=== PATIENT | male | born 1990 | race Caucasian/White ===

== ENCOUNTER 2018-04-27 15:45 | Emergency (ER) | payer SELFPAY ==
--- NOTE | 2018-04-27 16:01 | ER Report ---
History and Physical Time Seen By MD: 16:01 Hx. of Stated Complaint: pt having left sided rib pain. HPI/ROS CHIEF COMPLAINT: Left rib pain HISTORY OF PRESENT ILLNESS: 27-year-old male patient presents to emergency room with complaint of left rib pain. Patient states that the pain started this morning. He states that he believes that he may have strained something at work. 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 He states that typically the weight of what he is moving is 10-20 pounds patient states that his pain is worse when he stands up, when he moves. He states only sitting that the pain is a 4 out of 10. He denies having any fevers or chills. He states that he did not have any injury to the wrist. He denies having any rash or blistering of the skin. Patient states he does have pain with any type of movement of the skin. REVIEW OF SYSTEMS: Respiratory: No cough, no dyspnea. Cardiovascular: No chest pain, no palpitations. Gastrointestinal: No vomiting, no abdominal pain. Musculoskeletal: As noted above Allergies: Coded Allergies: No Known Drug Allergies (Unverified , 04/27/18) Home Meds Active Scripts Hydrocodone Bit/Acetaminophen (HYDROCODON-ACETAMINOPHEN 5-325) 1 Each Tablet, 1 EACH PO Q4-6H PRN for PAIN, #8 TAB Prov:FITZ GIBSON ATOMIC PHYSICS PROFESSOR 04/27/18 Valacyclovir Hcl (VALTREX) 1,000 Mg Tablet, 1000 MG PO TID, #19 TAB Prov:FITZ GIBSON ATOMIC PHYSICS PROFESSOR 04/27/18 Past Medical/Surgical History Patient has a past medical history of asthma. Patient denies any surgical history. Reviewed Nurses Notes: Yes Constitutional Vital Sign - Last 24 Hours 04/27/18 04/27/18 04/27/18 04/27/18 15:49 16:16 16:16 16:23 Temp 97.7 Pulse 76 76 87 Resp 18 20 18 B/P (MAP) 125/84 Pulse Ox 96 94 O2 Delivery Room Air Room Air 04/27/18 17:45 Resp 16 B/P (MAP) 136/88 (104) Pulse Ox 96 O2 Delivery Room Air Physical Exam General Appearance: The patient is alert, has no immediate need for airway protection and no current signs of toxicity. Respiratory: Chest is non tender, left ribs are tender to palpation, even light touch, lungs are clear to auscultation. Cardiac: regular rate and rhythm Gastrointestinal: Abdomen is soft and non tender, no masses, bowel sounds normal. Musculoskeletal: Neck: Neck is supple and non tender. Extremities have full range of motion and are non tender. Skin: No rashes or lesions. DIFFERENTIAL DIAGNOSIS: After history and physical exam differential diagnosis was considered for rib fracture, contusion, muscle strain, shingles. Medical Decision Making EKG/Imaging Imaging 2 VIEWS CHEST INDICATION: Left rib pain. COMPARISON: None available FINDINGS: Cardiomediastinal silhouette and pulmonary vessels within normal limits. There is no focal infiltrate or lobar consolidation. There is no pneumothorax or pleural effusion. No nodule. Upper abdomen is unremarkable. No acute bony abnormality. No appreciable rib abnormality. IMPRESSION: 1. No acute cardiopulmonary process. No appreciable rib abnormality. RIBS LEFT INDICATION: Left rib pain. COMPARISON: None available FINDINGS: 2 views left rib. No discrete rib fracture. No bony lesions. The remaining bony and soft tissues are unremarkable. IMPRESSION: No appreciable left rib abnormality. Report Dictated By: Yonatan Mcclure at 04/27/2018 4:56 PM Report E-Signed By: Yonatan Mcclure at 04/27/2018 5:00 PM ED Course/Re-evaluation ED Course Patient was admitted to an exam room, history and physical were obtained. Differential diagnoses were considered. On examination lungs are clear, heart is regular, abdomen is soft and nontender. Patient does have significant tenderness to the left ribs. On evaluation there is no rash or blistering noted. A chest x- ray and a rib x-ray were done. Those were negative. I discussed the findings with the patient. As I was talking with the patient I did ask if he had chickenpox as a child. Patient states that he did. I do believe that this is likely shingles outbreak but has not blistered yet. Patient did receive a dose of hydrocodone prior to the x-rays. He did seem more comfortable. I discussed with the patient results of his imaging as well as my belief that this is likely a shingles outbreak. We will go ahead and treat him with Valtrex, Lidoderm patches and a limited supply of pain medication. Patient is return to emergency room if condition worsens. I would like him follow-up with his primary care provider in the next week. Patient verbalized understanding and agreement with plan. Decision to Disposition Date: Apr 27, 2018 Decision to Disposition Time: 17:23 Depart Departure Latest Vital Signs Vital Signs Date Time Temp Pulse Resp B/P (MAP) Pulse Ox O2 Delivery O2 Flow Rate FiO2 04/27/18 17:45 16 136/88 (104) 96 Room Air 04/27/18 16:23 87 04/27/18 15:49 97.7 Impression: Primary Impression: Shingles Condition: Improved Disposition: HOME OR SELF-CARE New Scripts Hydrocodone Bit/Acetaminophen (HYDROCODON-ACETAMINOPHEN 5-325) 1 Each Tablet 1 EACH PO Q4-6H PRN for PAIN, #8 TAB Prov: FITZ GIBSON 04/27/18 Valacyclovir Hcl (VALTREX) 1,000 Mg Tablet 1000 MG PO TID, #19 TAB Prov: FITZ GIBSON 04/27/18 Patient Instructions: Shingles (ED) Additional Instructions: Increase fluid intake. Get plenty of rest. Follow up with your primary care provider in the next week. Take the medication as prescribed. If you are not able to afford the Valtrex, call and we will change it to Acyclovir. Get Lidocaine patches 4% over the counter to help with pain. Return to the ER if condition worsens. Problem Qualifiers Primary Impression: Shingles Herpes zoster complications: without complications Qualified Codes: B02.9 - Zoster without complications FITZ GIBSON Apr 27, 2018 16:01
[2018-04-27] MEDS ORDERED: ALBUTEROL/IPRATROPIUM 3 ML NEB NEB ONE (16:10)
[2018-04-27] MEDS ORDERED: APAP/HYDROCODONE 325/5 TAB PO ONE (16:10)
--- NOTE | 2018-04-27 17:04 | RADIOLOGY IMAGING REPORT ---
[place]AC[place] [facility] [place]IENT NAME: Damien Barrett : 1990 MR: [id number] V: [id number] EXAM DATE: ORDERING PHYSICIAN: FITZ GIBSON TECHNOLOGIST: Location: [facility] Patient: Damien Barrett : 1990 Visit/Account:[id number] Date of Sevice: 04/27/2018 2 VIEWS CHEST INDICATION: Left rib pain. COMPARISON: None available FINDINGS: Cardiomediastinal silhouette and pulmonary vessels within normal limits. There is no focal infiltrate or lobar consolidation. There is no pneumothorax or pleural effusion. No nodule. Upper abdomen is unremarkable. No acute bony abnormality. No appreciable rib abnormality. IMPRESSION: 1. No acute cardiopulmonary process. No appreciable rib abnormality. RIBS LEFT INDICATION: Left rib pain. COMPARISON: None available FINDINGS: 2 views left rib. No discrete rib fracture. No bony lesions. The remaining bony and soft tissues are unremarkable. IMPRESSION: No appreciable left rib abnormality. Report Dictated By: Yonatan Mcclure at 04/27/2018 4:56 PM Report E-Signed By: Yonatan Mcclure at 04/27/2018 5:00 PM WSN:[id number]
--- NOTE | 2018-04-27 17:04 | RADIOLOGY IMAGING REPORT ---
FACILITY: [facility] PATIENT NAME: Damien Barrett : 1990 MR: [id number] V: [id number] EXAM DATE: ORDERING PHYSICIAN: FITZ GIBSON TECHNOLOGIST: Location: [facility] - [place] Patient: Damien Barrett : 1990 Visit/Account:[id number] Date of Sevice: 04/27/2018 2 VIEWS CHEST INDICATION: Left rib pain. COMPARISON: None available FINDINGS: Cardiomediastinal silhouette and pulmonary vessels within normal limits. There is no focal infiltrate or lobar consolidation. There is no pneumothorax or pleural effusion. No nodule. Upper abdomen is unremarkable. No acute bony abnormality. No appreciable rib abnormality. IMPRESSION: 1. No acute cardiopulmonary process. No appreciable rib abnormality. RIBS LEFT INDICATION: Left rib pain. COMPARISON: None available FINDINGS: 2 views left rib. No discrete rib fracture. No bony lesions. The remaining bony and soft tissues are unremarkable. IMPRESSION: No appreciable left rib abnormality. Report Dictated By: Yonatan Mcclure at 04/27/2018 4:56 PM Report E-Signed By: Yonatan Mcclure at 04/27/2018 5:00 PM WSN:[id number]
[2018-04-27] MEDS ORDERED: valACYclovir HCL 500 MG TAB PO ONE (17:25)
[2018-04-27] MEDS ORDERED: VALA100062 PO (17:25)
[2018-04-27] MEDS ORDERED: LIDOCAINE 5% PATCH TP SCH (17:25)
[2018-04-27] MEDS ORDERED: HYDR-385 PO (17:25)
[2018-04-27] MEDS ORDERED: valACYclovir HCL 500 MG TAB ONE (17:31)
[2018-04-27 17:45] VITALS: BP 136/88
[2018-04-27] MEDS ORDERED: PATCH REMOVAL 1 EA TOP SCH (21:00)
== END 2018-04-27 18:01 | disposition home or self-care (01) ==
LOC: ER 16:23
DX: B02.9 Zoster without complications (principal)
CPT/HCPCS: 71046; 71100; 94640; 99284; J7620